=== PATIENT | male | born 1975 | race Caucasian/White ===

== ENCOUNTER → 2019-06-27 | Emergency (ER) | payer MEDICAID ==
[~2019-06-27] VITALS: Ht 177.8 cm; Wt 111.1 kg
[~2019-06-27] MED LIST: SODIUM CHLORIDE 0.9% 1,000 ML IV ONE
[2019-06-27 12:01] LABS: Basophils # (auto) 0.1 10 ^3/uL (0-0.2); Basophils % (auto) 0.8 % (0.0-2.0); Eosinophils # (auto) 0.1 10 ^3/uL (0-0.8); Eosinophils % (auto) 0.6 % (0.0-7.0); Hematocrit 40.9 % (41.0-53.0); Hemoglobin 13.7 g/dL (13.5-17.5); Lymphocytes # (auto) 1.9 10 ^3/uL (0.4-5.4); Lymphocytes % (auto) 20.7 % (10.0-50.0); Mean Corpuscular Hemoglobin 30.4 pg (28.0-32.0); Mean Corpuscular Hgb Conc. 33.4 g/dL (32.0-36.0); Mean Corpuscular Volume 90.8 fL (80.0-100.0); Monocytes # (auto) 0.9 10 ^3/uL (0-1.3); Monocytes % (auto) 10.1 % (0.0-12.0); Neutrophils # (auto) 6.3 10 ^3/uL (1.6-8.6); Neutrophils % (auto) 67.8 % (37.0-80.0); Platelet Count (auto) 222 10^3/uL (140-450); Red Blood Cells 4.51 10^6/uL (4.5-5.90); Red Cell Distribution Width 13.7 % (11.8-14.3); White Blood Cell 9.4 10^3/uL (4.4-10.8)
[2019-06-27 12:06] VITALS: BP 143/88
[2019-06-27 12:19] LABS: Albumin 3.8 g/dL (3.4-5.0); Anion Gap 6 (5-15); Blood Urea Nitrogen 15 mg/dL (7-18); Calcium 8.5 mg/dL (8.5-10.1); Carbon Dioxide 28 mmol/L (21-32); Chloride 104 mmol/L (98-107); Glucose 91 mg/dL (74-106); Potassium 3.8 mmol/L (3.5-5.1); Sodium 138 mmol/L (136-145)
[2019-06-27 12:25] LABS: Alanine Aminotransferase 41 U/L (16-61); Alkaline Phosphatase 55 U/L (45-117); Aspartate Aminotransferase 33 U/L (15-37); BUN/Creatinine Ratio 15.3; Bilirubin, Total 0.4 mg/dL (0.2-1.0); GFR African American 106 mL/min; GFR Non-African American 88 mL/min; Total Protein 7.5 g/dL (6.4-8.2)
== END | disposition home or self-care (01) ==
LOC: EDUNIT# 11:12 → ER 11:13 → EDBD 11:13
DX: E86.0 Dehydration (principal); T67.5XXA Heat exhaustion, unspecified, initial encounter; I10 Essential (primary) hypertension; M79.672 Pain in left foot; X58.XXXA Exposure to other specified factors, initial encounter; Y93.89 Activity, other specified; Y92.89 Other specified places as the place of occurrence of the external cause; Y99.8 Other external cause status
CPT/HCPCS: 36415; 70450; 71045; 73630; 80053; 84484; 85025; 96360

== ENCOUNTER 2019-07-18 14:58 | Emergency (ER) | payer MEDICAID ==
[~2019-07-18] VITALS: Ht 180.3 cm; Wt 90.7 kg
[2019-07-18] MEDS ORDERED: LORazepam 2MG/ML-1ML VIAL IV ONE (15:00)
[2019-07-18] MEDS ORDERED: SODIUM CHLORIDE 0.9% 1,000 ML IV ONE (15:00)
[2019-07-18 15:53] LABS: Basophils # (auto) 0.1 10 ^3/uL (0-0.2); Basophils % (auto) 1.3 % (0.0-2.0); Eosinophils # (auto) 0 10 ^3/uL (0-0.8); Eosinophils % (auto) 0.6 % (0.0-7.0); Hematocrit 41.1 % (41.0-53.0); Hemoglobin 13.7 g/dL (13.5-17.5); Lymphocytes # (auto) 1.8 10 ^3/uL (0.4-5.4); Lymphocytes % (auto) 24.2 % (10.0-50.0); Mean Corpuscular Hemoglobin 30.3 pg (28.0-32.0); Mean Corpuscular Hgb Conc. 33.3 g/dL (32.0-36.0); Mean Corpuscular Volume 90.7 fL (80.0-100.0); Monocytes # (auto) 0.7 10 ^3/uL (0-1.3); Monocytes % (auto) 9.5 % (0.0-12.0); Neutrophils # (auto) 4.9 10 ^3/uL (1.6-8.6); Neutrophils % (auto) 64.4 % (37.0-80.0); Nucleated Red Blood Cells % 0.1 %; Platelet Count (auto) 241 10^3/uL (140-450); Red Blood Cells 4.53 10^6/uL (4.5-5.90); Red Cell Distribution Width 13.7 % (11.8-14.3); White Blood Cell 7.6 10^3/uL (4.4-10.8)
[2019-07-18 16:08] LABS: Anion Gap 5 (5-15); Blood Urea Nitrogen 9 mg/dL (7-18); Carbon Dioxide 28 mmol/L (21-32); Chloride 102 mmol/L (98-107); Glucose 83 mg/dL (74-106); Potassium 3.5 mmol/L (3.5-5.1); Sodium 135 mmol/L (136-145)
[2019-07-18 16:13] LABS: Alanine Aminotransferase 42 U/L (16-61); Alkaline Phosphatase 60 U/L (45-117); Aspartate Aminotransferase 34 U/L (15-37); BUN/Creatinine Ratio 9.1; Bilirubin, Total 0.5 mg/dL (0.2-1.0); GFR African American 105 mL/min; GFR Non-African American 87 mL/min; Total Protein 8.1 g/dL (6.4-8.2)
[2019-07-18 18:26] VITALS: BP 140/92
[2019-07-18 18:49] LABS: Urine Bacteria NONE SEEN /hpf (None Seen); Urine Blood Negative /uL (Negative); Urine Mucus FEW (None Seen); Urine WBC 1 /hpf (0 - 3)
[2019-07-18 19:05] LABS: Alcohol, Urine < 3.0 mg/dL (0-5); Amphetamine Screen, Urine POSITIVE (NEGATIVE); Barbiturate Scree,Urine NEGATIVE (NEGATIVE); Benzodiazephine Screen, Urine NEGATIVE (NEGATIVE); Cannabinoid Screen, Urine NEGATIVE (NEGATIVE); Cocaine Screen, Urine NEGATIVE (NEGATIVE); Opiate Scree,Urine NEGATIVE (NEGATIVE); Phencyclidine Screen, Urine NEGATIVE (NEGATIVE)
== END 2019-07-18 18:30 | disposition home or self-care (01) ==
LOC: ER 14:58 → EDBD 14:58 → EDSEX 14:58 → ER 18:30
DX: G93.41 Metabolic encephalopathy (principal); E86.0 Dehydration; I10 Essential (primary) hypertension
CPT/HCPCS: 36415; 70450; 80053; 80307; 81001; 84484; 85025; 96361; 96374; 99284; J2060; J7030

== ENCOUNTER 2019-07-27 06:53 | Emergency (ER) | payer MEDICAID ==
[~2019-07-27] VITALS: Ht 177.8 cm; Wt 95.3 kg
[2019-07-27 07:03] VITALS: BP_SYST 106
[2019-07-27 07:31] LABS: Basophils # (auto) 0.1 10 ^3/uL (0-0.2); Basophils % (auto) 0.9 % (0.0-2.0); Eosinophils # (auto) 0.1 10 ^3/uL (0-0.8); Eosinophils % (auto) 0.9 % (0.0-7.0); Hematocrit 39.1 % (41.0-53.0); Hemoglobin 13.1 g/dL (13.5-17.5); Lymphocytes # (auto) 1.4 10 ^3/uL (0.4-5.4); Lymphocytes % (auto) 17.2 % (10.0-50.0); Mean Corpuscular Hemoglobin 30.6 pg (28.0-32.0); Mean Corpuscular Hgb Conc. 33.6 g/dL (32.0-36.0); Monocytes % (auto) 11.8 % (0.0-12.0); Neutrophils # (auto) 5.8 10 ^3/uL (1.6-8.6); Neutrophils % (auto) 69.2 % (37.0-80.0); Platelet Count (auto) 218 10^3/uL (140-450); Red Cell Distribution Width 13.3 % (11.8-14.3); White Blood Cell 8.4 10^3/uL (4.4-10.8)
[2019-07-27 07:44] LABS: Anion Gap 5 (5-15); Blood Urea Nitrogen 16 mg/dL (7-18); Calcium 8.9 mg/dL (8.5-10.1); Carbon Dioxide 28 mmol/L (21-32); Chloride 104 mmol/L (98-107); Glucose 92 mg/dL (74-106); Potassium 4.1 mmol/L (3.5-5.1); Sodium 137 mmol/L (136-145)
[2019-07-27 07:46] LABS: Alanine Aminotransferase 58 U/L (16-61); Aspartate Aminotransferase 76 U/L (15-37); BUN/Creatinine Ratio 13.7; Blood Alcohol < 3.0 mg/dL (0-5); GFR African American 87 mL/min; GFR Non-African American 72 mL/min
[2019-07-27 07:49] LABS: Alkaline Phosphatase 55 U/L (45-117); Bilirubin, Total 0.4 mg/dL (0.2-1.0); Total Protein 7.6 g/dL (6.4-8.2)
== END 2019-07-27 08:00 | disposition left against medical advice (07) ==
LOC: EDBD 06:53 → ER 06:53
DX: R53.1 Weakness (principal); R42 Dizziness and giddiness; Z53.21 Procedure and treatment not carried out due to patient leaving prior to being seen by health care provider
CPT/HCPCS: 36415; 80053; 80320; 85025; 93005

== ENCOUNTER 2019-07-30 13:43 | Emergency (ER) | payer MEDICAID ==
[~2019-07-30] VITALS: Ht 180.3 cm; Wt 104.3 kg
[2019-07-30] MEDS ORDERED: SODIUM CHLORIDE 0.9% 1,000 ML IV ONE (14:04)
[2019-07-30] MEDS ORDERED: ASPirin 81 mg TAB PO ONE (14:15)
[2019-07-30] MEDS ORDERED: LORazepam 2MG/ML-1ML VIAL IV ONE (14:15)
[2019-07-30 15:19] LABS: Basophils # (auto) 0 10 ^3/uL (0-0.2); Basophils % (auto) 0.5 % (0.0-2.0); Eosinophils # (auto) 0.1 10 ^3/uL (0-0.8); Hematocrit 36.7 % (41.0-53.0); Hemoglobin 12.4 g/dL (13.5-17.5); Lymphocytes # (auto) 1.8 10 ^3/uL (0.4-5.4); Lymphocytes % (auto) 24.7 % (10.0-50.0); Mean Corpuscular Hemoglobin 30.7 pg (28.0-32.0); Mean Corpuscular Hgb Conc. 33.9 g/dL (32.0-36.0); Mean Corpuscular Volume 90.4 fL (80.0-100.0); Monocytes # (auto) 0.8 10 ^3/uL (0-1.3); Monocytes % (auto) 10.8 % (0.0-12.0); Neutrophils # (auto) 4.6 10 ^3/uL (1.6-8.6); Nucleated Red Blood Cells % 0.1 %; Platelet Count (auto) 210 10^3/uL (140-450); Red Blood Cells 4.06 10^6/uL (4.5-5.90); Red Cell Distribution Width 13.2 % (11.8-14.3); White Blood Cell 7.3 10^3/uL (4.4-10.8)
[2019-07-30 15:32] LABS: Albumin 3.6 g/dL (3.4-5.0); Anion Gap 8 (5-15); Blood Alcohol < 3.0 mg/dL (0-5); Calcium 8.2 mg/dL (8.5-10.1); Carbon Dioxide 27 mmol/L (21-32); Chloride 102 mmol/L (98-107); Glucose 94 mg/dL (74-106); Potassium 3.4 mmol/L (3.5-5.1); Sodium 137 mmol/L (136-145)
[2019-07-30 15:38] LABS: Alanine Aminotransferase 54 U/L (16-61); Alkaline Phosphatase 54 U/L (45-117); Aspartate Aminotransferase 53 U/L (15-37); Bilirubin, Total 0.4 mg/dL (0.2-1.0); GFR African American 105 mL/min; GFR Non-African American 87 mL/min
[2019-07-30 16:00] VITALS: BP 127/78
[2019-07-30] MEDS ORDERED: POTASSIUM EFFERVESENT TAB 25 MEQ PO ONE (16:15)
[2019-07-30 17:07] LABS: BUN/Creatinine Ratio 15.2; Blood Urea Nitrogen 15 mg/dL (7-18)
== END 2019-07-30 17:14 | disposition left against medical advice (07) ==
LOC: EDBD 13:43 → ER 13:43
DX: R41.82 Altered mental status, unspecified (principal); F31.9 Bipolar disorder, unspecified; F14.10 Cocaine abuse, uncomplicated; E87.6 Hypokalemia; F17.210 Nicotine dependence, cigarettes, uncomplicated; E78.5 Hyperlipidemia, unspecified; F20.9 Schizophrenia, unspecified; I10 Essential (primary) hypertension
CPT/HCPCS: 36415; 71045; 80053; 80320; 83735; 84443; 84484; 85025; 85379; 93005; 96361; 96374; 99285; J2060; J7030

== ENCOUNTER → 2019-08-04 | Emergency (ER) | payer MEDICAID ==
[~2019-08-04] VITALS: Ht 177.8 cm; Wt 90.7 kg
[~2019-08-04] MED LIST changes: +CLINDAMYCIN 600MG IV 50 ML IV ONE; +cefTRIAXone 1GM/50ML D5W 50 ML IV ONE
[2019-08-04 07:08] LABS: Basophils # (auto) 0 10 ^3/uL (0-0.2); Basophils % (auto) 0.5 % (0.0-2.0); Eosinophils # (auto) 0.1 10 ^3/uL (0-0.8); Eosinophils % (auto) 1.6 % (0.0-7.0); Hemoglobin 12.8 g/dL (13.5-17.5); Lymphocytes # (auto) 1.3 10 ^3/uL (0.4-5.4); Lymphocytes % (auto) 19.7 % (10.0-50.0); Mean Corpuscular Hemoglobin 30.8 pg (28.0-32.0); Mean Corpuscular Hgb Conc. 33.7 g/dL (32.0-36.0); Mean Corpuscular Volume 91.2 fL (80.0-100.0); Monocytes # (auto) 0.9 10 ^3/uL (0-1.3); Monocytes % (auto) 13.3 % (0.0-12.0); Neutrophils # (auto) 4.4 10 ^3/uL (1.6-8.6); Neutrophils % (auto) 64.9 % (37.0-80.0); Nucleated Red Blood Cells % 0.1 %; Platelet Count (auto) 220 10^3/uL (140-450); Red Blood Cells 4.16 10^6/uL (4.5-5.90); Red Cell Distribution Width 13.3 % (11.8-14.3); White Blood Cell 6.8 10^3/uL (4.4-10.8)
[2019-08-04 07:30] LABS: Albumin 3.6 g/dL (3.4-5.0); Anion Gap 6 (5-15); Blood Alcohol < 3.0 mg/dL (0-5); Blood Urea Nitrogen 14 mg/dL (7-18); Calcium 8.4 mg/dL (8.5-10.1); Carbon Dioxide 29 mmol/L (21-32); Chloride 104 mmol/L (98-107); Glucose 90 mg/dL (74-106); Magnesium 2.7 mg/dL (1.6-2.6); Potassium 3.4 mmol/L (3.5-5.1); Sodium 139 mmol/L (136-145)
[2019-08-04 07:33] LABS: Alanine Aminotransferase 54 U/L (16-61); Alkaline Phosphatase 53 U/L (45-117); Aspartate Aminotransferase 44 U/L (15-37); BUN/Creatinine Ratio 12.6; Bilirubin, Total 0.5 mg/dL (0.2-1.0); GFR African American 92 mL/min; GFR Non-African American 76 mL/min; Total Protein 7.3 g/dL (6.4-8.2)
[2019-08-04 07:59] LABS: Salicylate < 1.7 mg/dL (2.8-20.0)
[2019-08-04 08:03] LABS: Acetaminophen < 2.0 ug/mL (10-30)
[2019-08-04 08:30] VITALS: BP 139/78
== END | disposition home or self-care (01) ==
LOC: EDUNIT# 06:07 → ER 06:15 → EDBD 06:15
DX: L03.032 Cellulitis of left toe (principal); E86.0 Dehydration; I10 Essential (primary) hypertension; E78.5 Hyperlipidemia, unspecified; F17.210 Nicotine dependence, cigarettes, uncomplicated
CPT/HCPCS: 36415; 80053; 80320; 80329; 82962; 83735; 85025; 99283; J0696; J7030

== ENCOUNTER 2019-08-07 10:09 | Emergency (ER) | payer MEDICAID ==
[~2019-08-07] VITALS: Ht 177.8 cm; Wt 90.7 kg
[2019-08-07 10:17] VITALS: BP 146/88
[2019-08-07 10:57] LABS: Basophils # (auto) 0 10 ^3/uL (0-0.2); Basophils % (auto) 0.8 % (0.0-2.0); Eosinophils # (auto) 0.2 10 ^3/uL (0-0.8); Eosinophils % (auto) 3.4 % (0.0-7.0); Hematocrit 37.8 % (41.0-53.0); Hemoglobin 12.9 g/dL (13.5-17.5); Lymphocytes # (auto) 1.5 10 ^3/uL (0.4-5.4); Lymphocytes % (auto) 25.2 % (10.0-50.0); Mean Corpuscular Hemoglobin 30.9 pg (28.0-32.0); Mean Corpuscular Hgb Conc. 34.2 g/dL (32.0-36.0); Mean Corpuscular Volume 90.6 fL (80.0-100.0); Monocytes # (auto) 0.6 10 ^3/uL (0-1.3); Monocytes % (auto) 9.7 % (0.0-12.0); Neutrophils # (auto) 3.5 10 ^3/uL (1.6-8.6); Neutrophils % (auto) 60.9 % (37.0-80.0); Nucleated Red Blood Cells % 0.1 %; Platelet Count (auto) 237 10^3/uL (140-450); Red Blood Cells 4.17 10^6/uL (4.5-5.90); Red Cell Distribution Width 13.3 % (11.8-14.3); White Blood Cell 5.8 10^3/uL (4.4-10.8)
[2019-08-07 11:15] LABS: Albumin 3.7 g/dL (3.4-5.0); Anion Gap 5 (5-15); Blood Urea Nitrogen 14 mg/dL (7-18); Carbon Dioxide 28 mmol/L (21-32); Chloride 106 mmol/L (98-107); Glucose 94 mg/dL (74-106); Potassium 3.8 mmol/L (3.5-5.1); Sodium 139 mmol/L (136-145)
[2019-08-07 11:21] LABS: Alanine Aminotransferase 46 U/L (16-61); Alkaline Phosphatase 51 U/L (45-117); Aspartate Aminotransferase 28 U/L (15-37); BUN/Creatinine Ratio 17.9; Bilirubin, Total 0.2 mg/dL (0.2-1.0); GFR African American 138 mL/min; GFR Non-African American 114 mL/min; Total Protein 7.3 g/dL (6.4-8.2)
== END 2019-08-07 12:15 | disposition left against medical advice (07) ==
LOC: EDBD 10:09 → ER 10:09
DX: R07.89 Other chest pain (principal); R51 Headache; Z53.21 Procedure and treatment not carried out due to patient leaving prior to being seen by health care provider
CPT/HCPCS: 36415; 71046; 80053; 84484; 85025

== ENCOUNTER 2019-08-18 07:04 | Emergency (ER) | payer MEDICAID ==
[~2019-08-18] VITALS: Ht 180.3 cm; Wt 93.9 kg
[2019-08-18 07:25] VITALS: BP 149/99
[2019-08-18] MEDS ORDERED: SODIUM CHLORIDE 0.9% 1,000 ML IV ONE ×2 (07:51)
[2019-08-18 07:54] LABS: Basophils # (auto) 0.1 10 ^3/uL (0-0.2); Basophils % (auto) 0.8 % (0.0-2.0); Eosinophils # (auto) 0.2 10 ^3/uL (0-0.8); Eosinophils % (auto) 2.4 % (0.0-7.0); Hematocrit 38.5 % (41.0-53.0); Hemoglobin 12.8 g/dL (13.5-17.5); Lymphocytes # (auto) 1.9 10 ^3/uL (0.4-5.4); Mean Corpuscular Hgb Conc. 33.3 g/dL (32.0-36.0); Monocytes # (auto) 0.8 10 ^3/uL (0-1.3); Monocytes % (auto) 11.9 % (0.0-12.0); Neutrophils # (auto) 3.7 10 ^3/uL (1.6-8.6); Neutrophils % (auto) 55.9 % (37.0-80.0); Platelet Count (auto) 210 10^3/uL (140-450); Red Blood Cells 4.28 10^6/uL (4.5-5.90); Red Cell Distribution Width 13.4 % (11.8-14.3); White Blood Cell 6.7 10^3/uL (4.4-10.8)
[2019-08-18 08:10] LABS: Alanine Aminotransferase 37 U/L (16-61); Albumin 3.7 g/dL (3.4-5.0); Anion Gap 5 (5-15); BUN/Creatinine Ratio 14.8; Blood Urea Nitrogen 13 mg/dL (7-18); Calcium 8.4 mg/dL (8.5-10.1); Carbon Dioxide 28 mmol/L (21-32); Chloride 104 mmol/L (98-107); GFR African American 120 mL/min; GFR Non-African American 100 mL/min; Glucose 82 mg/dL (74-106); Magnesium 2.5 mg/dL (1.6-2.6); Potassium 3.6 mmol/L (3.5-5.1); Salicylate < 1.7 mg/dL (2.8-20.0); Sodium 137 mmol/L (136-145)
[2019-08-18 08:13] LABS: Alkaline Phosphatase 54 U/L (45-117); Aspartate Aminotransferase 27 U/L (15-37); Bilirubin, Total 0.2 mg/dL (0.2-1.0); Total Protein 7.3 g/dL (6.4-8.2)
[2019-08-18 08:15] LABS: Acetaminophen < 2.0 ug/mL (10-30); Blood Alcohol < 3.0 mg/dL (0-5)
== END 2019-08-18 11:00 | disposition home or self-care (01) ==
LOC: ER 07:04
DX: M54.2 Cervicalgia (principal); M54.5 Low back pain; F41.9 Anxiety disorder, unspecified; E86.0 Dehydration; I10 Essential (primary) hypertension; E78.5 Hyperlipidemia, unspecified; F17.210 Nicotine dependence, cigarettes, uncomplicated
CPT/HCPCS: 36415; 80053; 80320; 80329; 83735; 85025

== ENCOUNTER 2019-08-20 11:27 | Emergency (ER) | payer MEDICAID ==
[~2019-08-20] VITALS: Ht 180.3 cm; Wt 91.6 kg
[2019-08-20 12:11] VITALS: BP 131/85
[2019-08-20] MEDS ORDERED: KETOROLAC TROMETH 60MG/2ML VIAL IM ONE (13:00)
== END 2019-08-20 13:22 | disposition home or self-care (01) ==
LOC: ER 11:27
DX: M54.16 Radiculopathy, lumbar region (principal); G89.29 Other chronic pain; M54.5 Low back pain; F17.210 Nicotine dependence, cigarettes, uncomplicated; E78.5 Hyperlipidemia, unspecified; I10 Essential (primary) hypertension
CPT/HCPCS: 96372; 99283; J1885

== ENCOUNTER 2019-08-22 04:04 | Emergency (ER) | payer MEDICAID ==
[~2019-08-22] VITALS: Ht 180.3 cm; Wt 97.5 kg
[2019-08-22] MEDS ORDERED: LORazepam 2MG/ML-1ML VIAL IV ONE (04:30)
[2019-08-22 05:11] LABS: Basophils # (auto) 0.1 10 ^3/uL (0-0.2); Basophils % (auto) 1.2 % (0.0-2.0); Eosinophils # (auto) 0.2 10 ^3/uL (0-0.8); Eosinophils % (auto) 3.4 % (0.0-7.0); Hematocrit 37.3 % (41.0-53.0); Hemoglobin 12.5 g/dL (13.5-17.5); Lymphocytes # (auto) 2.1 10 ^3/uL (0.4-5.4); Lymphocytes % (auto) 38.9 % (10.0-50.0); Mean Corpuscular Hemoglobin 30.4 pg (28.0-32.0); Mean Corpuscular Hgb Conc. 33.4 g/dL (32.0-36.0); Mean Corpuscular Volume 90.9 fL (80.0-100.0); Monocytes # (auto) 0.6 10 ^3/uL (0-1.3); Monocytes % (auto) 11.7 % (0.0-12.0); Neutrophils # (auto) 2.4 10 ^3/uL (1.6-8.6); Neutrophils % (auto) 44.8 % (37.0-80.0); Nucleated Red Blood Cells % 0.1 %; Platelet Count (auto) 192 10^3/uL (140-450); Red Blood Cells 4.11 10^6/uL (4.5-5.90); Red Cell Distribution Width 13.6 % (11.8-14.3); White Blood Cell 5.4 10^3/uL (4.4-10.8)
[2019-08-22 05:26] LABS: Salicylate < 1.7 mg/dL (2.8-20.0)
[2019-08-22 05:28] LABS: Albumin 3.7 g/dL (3.4-5.0); Anion Gap 5 (5-15); Blood Urea Nitrogen 8 mg/dL (7-18); Calcium 8.3 mg/dL (8.5-10.1); Carbon Dioxide 28 mmol/L (21-32); Chloride 106 mmol/L (98-107); Glucose 89 mg/dL (74-106); Magnesium 2.5 mg/dL (1.6-2.6); Potassium 3.4 mmol/L (3.5-5.1); Sodium 139 mmol/L (136-145)
[2019-08-22 05:30] LABS: Acetaminophen < 2.0 ug/mL (10-30)
[2019-08-22 05:35] LABS: Alanine Aminotransferase 41 U/L (16-61); Alkaline Phosphatase 47 U/L (45-117); Aspartate Aminotransferase 43 U/L (15-37); BUN/Creatinine Ratio 9.8; Bilirubin, Total 0.3 mg/dL (0.2-1.0); GFR African American 131 mL/min; GFR Non-African American 108 mL/min; Total Protein 7.1 g/dL (6.4-8.2)
[2019-08-22] MEDS ORDERED: SODIUM CHLORIDE 0.9% 1,000 ML IV ONE (05:45)
[2019-08-22 05:59] LABS: Urine Bacteria FEW /hpf (None Seen); Urine Blood Negative /uL (Negative); Urine Specific Gravity 1.003 (1.001-1.035); Urine WBC 1 /hpf (0 - 3)
[2019-08-22 06:21] LABS: Amphetamine Screen, Urine NEGATIVE (NEGATIVE); Barbiturate Scree,Urine NEGATIVE (NEGATIVE); Benzodiazephine Screen, Urine NEGATIVE (NEGATIVE); Cannabinoid Screen, Urine NEGATIVE (NEGATIVE); Cocaine Screen, Urine POSITIVE (NEGATIVE); Phencyclidine Screen, Urine NEGATIVE (NEGATIVE)
[2019-08-22 06:32] LABS: Opiate Scree,Urine NEGATIVE (NEGATIVE)
[2019-08-22] MEDS ORDERED: FOLIC ACID 1 MG, MULTIPLE VITAMIN 10 ML, MAGNESIUM SULF SDV 50% 8 MEQ, THIAMINE INJ 100... INJ SCH ×5 (08:00)
[2019-08-22 10:05] VITALS: BP 110/63
== END 2019-08-22 11:28 | disposition home or self-care (01) ==
LOC: ER 04:04 → EDBD 04:04 → ER 11:28
DX: F10.129 Alcohol abuse with intoxication, unspecified (principal); E86.0 Dehydration; Y90.9 Presence of alcohol in blood, level not specified
CPT/HCPCS: 36415; 71045; 80053; 80307; 80320; 80329; 81001; 83735; 84484; 85025; 93005; 96361; 96365; 96366; 99285; J3411; J3475; J7030

== ENCOUNTER 2019-08-23 01:34 | Emergency (ER) | payer MEDICAID ==
[~2019-08-23] VITALS: Ht 177.8 cm; Wt 93.0 kg
[2019-08-23 02:09] VITALS: BP 165/105
[2019-08-23 03:27] LABS: Basophils # (auto) 0 10 ^3/uL (0-0.2); Basophils % (auto) 0.6 % (0.0-2.0); Eosinophils # (auto) 0.2 10 ^3/uL (0-0.8); Eosinophils % (auto) 2.9 % (0.0-7.0); Hematocrit 37.7 % (41.0-53.0); Hemoglobin 12.6 g/dL (13.5-17.5); Lymphocytes # (auto) 2.2 10 ^3/uL (0.4-5.4); Lymphocytes % (auto) 30.2 % (10.0-50.0); Mean Corpuscular Hemoglobin 30.3 pg (28.0-32.0); Mean Corpuscular Hgb Conc. 33.5 g/dL (32.0-36.0); Mean Corpuscular Volume 90.6 fL (80.0-100.0); Monocytes # (auto) 0.7 10 ^3/uL (0-1.3); Monocytes % (auto) 10.2 % (0.0-12.0); Neutrophils # (auto) 4.1 10 ^3/uL (1.6-8.6); Neutrophils % (auto) 56.1 % (37.0-80.0); Nucleated Red Blood Cells % 0.1 %; Platelet Count (auto) 227 10^3/uL (140-450); Red Blood Cells 4.16 10^6/uL (4.5-5.90); Red Cell Distribution Width 13.8 % (11.8-14.3); White Blood Cell 7.3 10^3/uL (4.4-10.8)
[2019-08-23 03:54] LABS: Anion Gap 5 (5-15); Blood Urea Nitrogen 8 mg/dL (7-18); Carbon Dioxide 27 mmol/L (21-32); Chloride 107 mmol/L (98-107); Glucose 87 mg/dL (74-106); Potassium 3.5 mmol/L (3.5-5.1); Sodium 139 mmol/L (136-145)
[2019-08-23 03:55] LABS: Alanine Aminotransferase 41 U/L (16-61); Albumin 3.5 g/dL (3.4-5.0); Aspartate Aminotransferase 38 U/L (15-37); BUN/Creatinine Ratio 9.9; Calcium 8.1 mg/dL (8.5-10.1); GFR African American 133 mL/min; GFR Non-African American 110 mL/min; Magnesium 2.4 mg/dL (1.6-2.6)
[2019-08-23 03:59] LABS: Alkaline Phosphatase 56 U/L (45-117); Bilirubin, Total 0.3 mg/dL (0.2-1.0)
== END 2019-08-23 04:45 | disposition left against medical advice (07) ==
LOC: ER 01:34
DX: R07.9 Chest pain, unspecified (principal); Z53.21 Procedure and treatment not carried out due to patient leaving prior to being seen by health care provider
CPT/HCPCS: 36415; 71046; 80053; 83735; 84484; 85025; 93005

== ENCOUNTER → 2019-08-24 | Emergency (ER) | payer MEDICAID ==
[~2019-08-24] VITALS: Ht 170.2 cm; Wt 77.1 kg
[2019-08-24 21:18] VITALS: BP 148/83
== END | disposition left against medical advice (07) ==
LOC: ER 20:39
DX: M25.579 Pain in unspecified ankle and joints of unspecified foot (principal); Z53.21 Procedure and treatment not carried out due to patient leaving prior to being seen by health care provider

== ENCOUNTER 2019-08-25 02:22 | Emergency (ER) | payer MEDICAID ==
[~2019-08-25] VITALS: Ht 180.3 cm; Wt 77.1 kg
[2019-08-25 04:19] LABS: Amphetamine Screen, Urine NEGATIVE (NEGATIVE); Barbiturate Scree,Urine NEGATIVE (NEGATIVE); Benzodiazephine Screen, Urine NEGATIVE (NEGATIVE); Cannabinoid Screen, Urine NEGATIVE (NEGATIVE); Cocaine Screen, Urine NEGATIVE (NEGATIVE)
[2019-08-25 04:20] LABS: Alcohol, Urine < 3.0 mg/dL (0-10); Opiate Scree,Urine NEGATIVE (NEGATIVE); Phencyclidine Screen, Urine NEGATIVE (NEGATIVE)
[2019-08-25 04:21] LABS: Urine Bacteria FEW /hpf (None Seen); Urine Blood Negative /uL (Negative); Urine Mucus FEW (None Seen); Urine Specific Gravity 1.027 (1.001-1.035); Urine WBC 1 /hpf (0 - 3)
[2019-08-25 05:02] LABS: Basophils # (auto) 0 10 ^3/uL (0-0.2); Basophils % (auto) 0.5 % (0.0-2.0); Eosinophils # (auto) 0.2 10 ^3/uL (0-0.8); Eosinophils % (auto) 2.6 % (0.0-7.0); Hematocrit 38.1 % (41.0-53.0); Hemoglobin 12.6 g/dL (13.5-17.5); Lymphocytes # (auto) 1.7 10 ^3/uL (0.4-5.4); Lymphocytes % (auto) 26.6 % (10.0-50.0); Mean Corpuscular Hemoglobin 30.2 pg (28.0-32.0); Mean Corpuscular Hgb Conc. 33.1 g/dL (32.0-36.0); Mean Corpuscular Volume 91.4 fL (80.0-100.0); Monocytes # (auto) 0.6 10 ^3/uL (0-1.3); Monocytes % (auto) 9.9 % (0.0-12.0); Neutrophils # (auto) 3.8 10 ^3/uL (1.6-8.6); Neutrophils % (auto) 60.4 % (37.0-80.0); Platelet Count (auto) 205 10^3/uL (140-450); Red Blood Cells 4.17 10^6/uL (4.5-5.90); Red Cell Distribution Width 13.7 % (11.8-14.3); White Blood Cell 6.3 10^3/uL (4.4-10.8)
[2019-08-25 05:23] LABS: INR 1.02 (0.9-1.15); Partial Thromboplastin Time 25.7 sec (23.64-32.05)
[2019-08-25 05:24] LABS: Salicylate < 1.7 mg/dL (2.8-20.0)
[2019-08-25 05:29] LABS: Acetaminophen < 2.0 ug/mL (10-30); Albumin 3.7 g/dL (3.4-5.0); Anion Gap 6 (5-15); Blood Urea Nitrogen 12 mg/dL (7-18); Calcium 8.8 mg/dL (8.5-10.1); Carbon Dioxide 28 mmol/L (21-32); Chloride 107 mmol/L (98-107); Glucose 82 mg/dL (74-106); Potassium 3.5 mmol/L (3.5-5.1); Sodium 141 mmol/L (136-145)
[2019-08-25 05:36] LABS: Alanine Aminotransferase 40 U/L (16-61); Alkaline Phosphatase 52 U/L (45-117); Aspartate Aminotransferase 39 U/L (15-37); BUN/Creatinine Ratio 12.9; Bilirubin, Total 0.3 mg/dL (0.2-1.0); GFR African American 113 mL/min; GFR Non-African American 93 mL/min; Total Protein 7.2 g/dL (6.4-8.2)
[2019-08-25 07:25] VITALS: BP 133/75
== END 2019-08-25 09:28 | disposition home or self-care (01) ==
LOC: EDBD 02:22 → ER 02:24
DX: F20.9 Schizophrenia, unspecified (principal); E78.5 Hyperlipidemia, unspecified; I10 Essential (primary) hypertension
CPT/HCPCS: 36415; 71045; 80053; 80307; 80329; 81001; 83880; 84484; 85025; 85610; 85730; 93005

== ENCOUNTER 2019-08-26 10:27 | Emergency (ER) | payer MEDICAID ==
[~2019-08-26] VITALS: Ht 172.7 cm; Wt 91.6 kg
[2019-08-26 10:39] VITALS: BP 138/84
[2019-08-26 11:37] LABS: Basophils # (auto) 0 10 ^3/uL (0-0.2); Basophils % (auto) 0.8 % (0.0-2.0); Eosinophils # (auto) 0.2 10 ^3/uL (0-0.8); Eosinophils % (auto) 3.5 % (0.0-7.0); Hematocrit 39.2 % (41.0-53.0); Hemoglobin 13.2 g/dL (13.5-17.5); Lymphocytes # (auto) 1.3 10 ^3/uL (0.4-5.4); Lymphocytes % (auto) 23.8 % (10.0-50.0); Mean Corpuscular Hemoglobin 30.5 pg (28.0-32.0); Mean Corpuscular Hgb Conc. 33.6 g/dL (32.0-36.0); Mean Corpuscular Volume 90.6 fL (80.0-100.0); Monocytes # (auto) 0.6 10 ^3/uL (0-1.3); Monocytes % (auto) 10.5 % (0.0-12.0); Neutrophils # (auto) 3.4 10 ^3/uL (1.6-8.6); Neutrophils % (auto) 61.4 % (37.0-80.0); Platelet Count (auto) 212 10^3/uL (140-450); Red Blood Cells 4.32 10^6/uL (4.5-5.90); Red Cell Distribution Width 13.6 % (11.8-14.3); White Blood Cell 5.6 10^3/uL (4.4-10.8)
[2019-08-26 12:02] LABS: Acetaminophen < 2.0 ug/mL (10-30); Salicylate < 1.7 mg/dL (2.8-20.0)
== END 2019-08-26 22:44 | disposition home or self-care (01) ==
LOC: EDBD 10:27 → ER 10:27
DX: F29 Unspecified psychosis not due to a substance or known physiological condition (principal); I10 Essential (primary) hypertension; E78.5 Hyperlipidemia, unspecified
CPT/HCPCS: 36415; 80320; 80329; 85025

== ENCOUNTER 2019-09-15 16:24 | Emergency (ER) | payer MEDICAID ==
[~2019-09-15] VITALS: Ht 180.3 cm; Wt 93.0 kg
[2019-09-15 16:41] VITALS: BP 154/102
== END 2019-09-15 17:54 | disposition home or self-care (01) ==
LOC: ER 16:24
DX: S06.891A Other specified intracranial injury with loss of consciousness of 30 minutes or less, initial encounter (principal); I10 Essential (primary) hypertension; E78.5 Hyperlipidemia, unspecified; F17.210 Nicotine dependence, cigarettes, uncomplicated; W01.0XXA Fall on same level from slipping, tripping and stumbling without subsequent striking against object, initial encounter; Y93.01 Activity, walking, marching and hiking; Y92.830 Public park as the place of occurrence of the external cause; Y99.8 Other external cause status
CPT/HCPCS: 70450

== ENCOUNTER 2019-09-16 01:49 | Emergency (ER) | payer MEDICAID ==
[~2019-09-16] VITALS: Ht 180.3 cm; Wt 93.0 kg
[2019-09-16 02:17] VITALS: BP 172/96
== END 2019-09-16 05:03 | disposition left against medical advice (07) ==
LOC: ER 01:50
DX: R20.0 Anesthesia of skin (principal); Z53.21 Procedure and treatment not carried out due to patient leaving prior to being seen by health care provider
CPT/HCPCS: 73620

== ENCOUNTER 2019-09-19 07:10 | Emergency (ER) | payer MEDICAID ==
[~2019-09-19] VITALS: Ht 180.3 cm; Wt 93.0 kg
[2019-09-19 07:41] VITALS: BP 145/93
== END 2019-09-19 17:45 | disposition home or self-care (01) ==
LOC: ER 07:10
DX: S86.912A Strain of unspecified muscle(s) and tendon(s) at lower leg level, left leg, initial encounter (principal); S86.911A Strain of unspecified muscle(s) and tendon(s) at lower leg level, right leg, initial encounter; F41.9 Anxiety disorder, unspecified; E78.5 Hyperlipidemia, unspecified; I10 Essential (primary) hypertension; F20.9 Schizophrenia, unspecified; F17.210 Nicotine dependence, cigarettes, uncomplicated; F10.20 Alcohol dependence, uncomplicated; Y90.9 Presence of alcohol in blood, level not specified; X58.XXXA Exposure to other specified factors, initial encounter; Y93.89 Activity, other specified; Y92.89 Other specified places as the place of occurrence of the external cause; Y99.8 Other external cause status

== ENCOUNTER 2019-09-24 09:46 | Emergency (ER) | payer OTHER, MEDICAID | END 2019-09-24 10:44 | disposition left against medical advice (07) | LOC: ER 09:46 | DX: Z04.1 Encounter for examination and observation following transport accident (principal); Z53.21 Procedure and treatment not carried out due to patient leaving prior to being seen by health care provider ==

== ENCOUNTER 2019-10-08 01:20 | Emergency (ER) | payer MEDICAID ==
[~2019-10-08] VITALS: Ht 177.8 cm; Wt 93.0 kg
[2019-10-08 02:04] VITALS: BP 131/77
== END 2019-10-08 02:40 | disposition left against medical advice (07) ==
LOC: ER 01:21
DX: R42 Dizziness and giddiness (principal); R51 Headache; Z53.21 Procedure and treatment not carried out due to patient leaving prior to being seen by health care provider